=== PATIENT | female | born 1975 | race African-American/Black ===

== ENCOUNTER 2021-04-13 20:26 | Emergency (ER) | payer MEDICAID ==
[2021-04-13] MEDS ORDERED: Lidocaine 2% Viscous Solution 15 ML Cup PO ONE (21:47)
[2021-04-13] MEDS ORDERED: Ketorolac 60 MG/2 ML SDV IM ONE (21:47)
[2021-04-13] MEDS ORDERED: Benzocaine 20% Topical Spray UD MUCMEM ONE (21:47)
[2021-04-13] MEDS ORDERED: Acetaminophen/HYDROcodone 325-10 MG Tab PO ONE (21:47)
[2021-04-13] MEDS ORDERED: Penicillin V Potassium 500 MG Tab PO STA (21:50)
--- NOTE | 2021-04-13 22:04 | EDM.PDOC ---
ED HPI GENERAL MEDICAL PROBLEM - General Chief Complaint: General Stated Complaint: TOOTH ACHE Time Seen by Provider: 04/13/21 20:31 - History of Present Illness INITIAL COMMENTS - FREE TEXT/NARRATIVE: HISTORY AND PHYSICAL: History of present illness: The patient is a 45-year-old female who presents to the emergency department with complaints of left lower that started approximately 3 days ago. The patient states that the tooth has been chipped and she has a temporary filling but now the pain is unbearable. She states that she can't sleep and can eat. She states that she did call to talk to a dentist office and they could get her in in a few days, however the patient has recently moved to [place] and has Medicaid from another state. The patient is unsure when she could get the dental work done. Patient denies any fever, chills, headache, change in vision, syncope or near syncope. Denies any chest pain, back pain, shortness of breath or cough. Denies any abdominal pain, vomiting, diarrhea, constipation or dysuria. Has not noted any blood in urine or stool. Review of systems: As per history of present illness and below otherwise all systems reviewed and negative. Past medical history: As per history of present illness and as reviewed below otherwise noncontributory. Surgical history: As per history of present illness and as reviewed below otherwise noncontributory. Social history: See social history for further information Family history: As per history of present illness and as reviewed below otherwise noncontributory. Physical exam: General: Well developed and well nourished. Alert and orientated x 3. Nontoxic in appearance and in no acute distress. Vital signs are stable and have been reviewed by me. Nursing notes were reviewed. HEENT: Atraumatic, normocephalic, pupils equal and reactive bilaterally, negative for conjunctival pallor or scleral icterus, mucous membranes moist, tooth # 18 caries and partial filling, gums red, TMs normal bilaterally, throat clear, neck supple, nontender, trachea midline. No drooling or trismus noted. No meningeal signs. No hot potato voice noted. Lungs: Normal work of breathing, no accessory muscles used. Skin: Intact, warm, dry. No lesions or rashes noted. Hematologic: No petechiae or purpra. Mucosa appropriate color and normal nail bed color and refill. Extremities: Atraumatic, moves all extremities per self without difficulty or deficits, negative for cords or calf pain. Neurovascular unremarkable. Neuro: Awake, alert, oriented. Cranial nerves II through XII unremarkable. Cerebellum unremarkable. Motor and sensory unremarkable throughout. Exam nonfocal. Psychiatric: Mood and affect are appropriate. Normal thought process. Answering questions appropriately. Notes: *This patient was seen and evaluated during the 2019 SARS-CoV-2 novel coronavirus pandemic period. Community viral transmission is ongoing at time of this encounter and the emergency department is operating under pandemic response procedures. As stated above the patient is a 45-year-old who presents to the emergency department complaining of pain of tooth #18. Examination does show a carious tooth #18 with some inflamed gum line. I will treat the patient with an injection of Toradol, a dental ball, and Parker 325/10 mg. I will prescribe NOrco 325/7.5mg every 4-6 hours as needed for pain and penicillin VK 500 mg every 8 hours p.o. for 10 days. The patient is agreeable with this plan. I have talked with the patient about today's findings, in addition to providing specific details for plan of care. Reassessment at the time of disposition de monstrates that the patient is in no acute distress. The patient is stable for discharge, counseling was provided and we discussed in great detail signs and symptoms that would prompt them to return to the Emergency Department. Medication, follow up and supportive care measures were reviewed and discussed. Voices understanding and is agreeable to plan of care. Denies any further questions or concerns at this time. Therapeutics: Toradol, dental ball, Parker 325/10 mg Prescription: Parker 325/7.5mg every 4-6 hours as needed for pain and penicillin VK 500 mg every 8 hours p.o. for 10 days Impression: Dental Caries Plan: 1. You were evaluated today on an emergent basis. Your pain in your left lower molar was evaluated and found indeed to be broken with some infection there. I have treated your pain with Toradol, dental ball and Parker 325/10 in the emergency department. I also started your antibiotic of penicillin the 500 mg in the emergency department. I prescribed Parker 325/7.5mg every 4-6 hours as needed for pain given a paper prescription for that. I also prescribed penicillin VK 500 mg every 8 hours p.o. for 10 days was sent to your pharmacy in the pharmacy. Tentative treatment is to see a dentist. And as we talked about you can attempt to get a temporary filling at [facility]. This could help relieve some of the pain. 2. You can alternate Tylenol and ibuprofen as needed for pain and fever management. 3. We encourage you to follow up with your primary care provider and/or recommended specialist in the next few days for re-evaluation and further care/management. 4. If your symptoms should worsen, new symptoms develop or any of the signs and symptoms we discussed should arise please return to the emergency room or call 911 (if needed). Definitive disposition and diagnosis as appropriate pending reevaluation and review of above. tooth Pain Score (Numeric/FACES): 9 - Related Data Allergies Allergy/AdvReac Type Severity Reaction Status Date / Time No Known Allergies Allergy Verified 04/13/21 22:08 Home Meds: Home Meds Penicillin V Potassium 500 mg PO Q8HR 10 Days #30 tab 04/13/21 [Rx] Past Medical History - Past Health History Medical/Surgical History: Denies Medical/Surgical History Social & Family History - Family History Family Medical History: No Pertinent Family History - Tobacco Use Tobacco Use Status *Q: Never Tobacco User Second Hand Smoke Exposure: No - Caffeine Use Caffeine Use: Reports: Coffee - Recreational Drug Use Recreational Drug Use: No ED ROS GENERAL - Review of Systems Review Of Systems: Comprehensive ROS is negative, except as noted in HPI. ED EXAM, GENERAL - Physical Exam Exam: See Below (See dictation) Course - Vital Signs Last Recorded V/S: Last Vital Signs Temp 97 F 04/13/21 21:41 Pulse 56 L 04/13/21 22:33 Resp 18 04/13/21 22:33 BP 136/91 H 04/13/21 22:33 Pulse Ox 98 04/13/21 22:33 - Orders/Labs/Meds Meds: Medications Discontinued Medications Generic Name Dose Route Start Last Admin Trade Name Freq PRN Reason Stop Dose Admin Hydrocodone Bitart/Acetaminophen 1 tab 04/13/21 21:47 04/13/21 22:26 Acetaminophen/Hydrocodone 325-10 Mg Tab PO 04/13/21 21:48 1 tab ONETIME ONE Administration Benzocaine 2 each 04/13/21 21:47 04/13/21 22:25 Benzocaine 20% Topical [place] Ud MUCMEM 04/13/21 21:48 2 each ONETIME ONE Administration Ketorolac Tromethamine 60 mg 04/13/21 21:47 04/13/21 22:25 Ketorolac 60 Mg/2 Ml Sdv IM 04/13/21 21:48 60 mg ONETIME ONE Administration Lidocaine HCl 15 ml 04/13/21 21:47 04/13/21 22:26 Lidocaine 2% Viscous Solution 15 Ml Cup PO 04/13/21 21:48 15 ml ONETIME ONE Administration Penicillin V Potassium 500 mg 04/13/21 21:50 04/13/21 22:26 Penicillin V Potassium 500 Mg Tab PO 04/13/21 21:51 500 mg ONETIME STA Administration Departure - Departure Time of Disposition: 22:05 Disposition: Home, Self-Care 01 Condition: Good Clinical Impression: Dental caries - Discharge Information *PRESCRIPTION DRUG MONITORING PROGRAM REVIEWED*: Yes (No report for patient) *COPY OF PRESCRIPTION DRUG MONITORING REPORT IN PATIENT NUZHAT: No Prescriptions: Penicillin V Potassium 500 mg PO Q8HR 10 Days #30 tab Referrals: PCP,None [Primary Care Provider] - Forms: ED Department Discharge Additional Instructions: The following information is given to patients seen in the emergency department who are being discharged to home. This information is to outline your options for follow-up care. We provide all patients seen in our emergency department with a follow-up referral. The need for follow-up, as well as the timing and circumstances, are variable depending upon the specifics of your emergency department visit. If you don't have a primary care physician on staff, we will provide you with a referral. We always advise you to contact your personal physician following an emergency department visit to inform them of the circumstance of the visit and for follow-up with them and/or the need for any referrals to a consulting specialist. The emergency department will also refer you to a specialist when appropriate. This referral assures that you have the opportunity for follow-up care with a specialist. All of these measure are taken in an effort to provide you with optimal care, which includes your follow-up. Under all circumstances we always encourage you to contact your private physician who remains a resource for coordinating your care. When calling for follow-up care, please make the office aware that this follow-up is from your recent emergency room visit. If for any reason you are refused follow-up, please contact the [facility] Emergency Department at and asked to speak to the emergency department charge nurse. [facility] [address] [place] [address] [facility] [address] [place] [address] Plan: 1. You were evaluated today on an emergent basis. Your pain in your left lower molar was evaluated and found indeed to be broken with some infection there. I have treated your pain with Toradol, dental ball and Parker 325/10 in the emergency department. I also started your antibiotic of penicillin the 500 mg in the emergency department. I prescribed Parker 325/7.5mg every 4-6 hours as needed for pain given a paper prescription for that. I also prescribed penicillin VK 500 mg every 8 hours p.o. for 10 days was sent to your pharmacy in the pharmacy. Tentative treatment is to see a dentist. And as we talked about you can attempt to get a temporary filling at [facility]. This could help relieve some of the pain. 2. You can alternate Tylenol and ibuprofen as needed for pain and fever management. 3. We encourage you to follow up with your primary care provider and/or recommended specialist in the next few days for re-evaluation and further care/management. 4. If your symptoms should worsen, new symptoms develop or any of the signs and symptoms we discussed should arise please return to the emergency room or call 911 (if needed). Sepsis Event Note (ED) - Evaluation Sepsis Screening Result: No Definite Risk - Focused Exam Vital Signs: Vital Signs Temp Pulse Resp BP Pulse Ox 04/13/21 22:33 56 L 18 136/91 H 98 04/13/21 21:41 97 F 70 18 124/98 H 100
== END 2021-04-13 22:34 | disposition home or self-care (01) ==
LOC: MW.ED 20:26
DX: K02.9 Dental caries, unspecified (principal)
CPT/HCPCS: 96372; 99282; A9270; J1885

== ENCOUNTER 2021-04-14 10:41 | Emergency (ER) | payer MEDICAID ==
[2021-04-14] MEDS ORDERED: Benzocaine 20% Topical Spray UD MUCMEM ONE (10:43)
[2021-04-14] MEDS ORDERED: Lidocaine 2% Viscous Solution 15 ML Cup PO ONE (10:43)
[2021-04-14] MEDS ORDERED: Acetaminophen/HYDROcodone 325-5 MG Tab PO ONE (10:44)
--- NOTE | 2021-04-14 10:59 | EDM.PDOC ---
ED HPI GENERAL MEDICAL PROBLEM - General Chief Complaint: ENT Problem Stated Complaint: TOOTH DECAY/TOOTH PAIN Time Seen by Provider: 04/14/21 10:43 Source of Information: Reports: Patient History Limitations: Reports: No Limitations - History of Present Illness INITIAL COMMENTS - FREE TEXT/NARRATIVE: HISTORY AND PHYSICAL: History of present illness: Patient is a 45-year-old female who presents to the emergency room with complaints of left lower dental pain. She was seen yesterday for this pain and started on Pen-Vee K but states the pain is unbearable. She did attempt to get into a dentist but they are unwilling to take her insurance. She picked up the prescription for the antibiotic this morning, has had her first dose. Patient denies any fever, chills, headache, change in vision, syncope or near syncope. Denies any chest pain, back pain, shortness of breath or cough. Denies any abdominal pain, nausea, vomiting, diarrhea, constipation or dysuria. Has not noted any blood in urine or stool. Patient has been eating and drinking appropriately. No recent travel or sick contacts. Review of systems: As per history of present illness and below otherwise all systems reviewed and negative. Past medical history: As per history of present illness and as reviewed below otherwise noncontributory. Surgical history: As per history of present illness and as reviewed below otherwise noncontributory. Social history: See social history for further information Family history: As per history of present illness and as reviewed below otherwise noncontributory. Physical exam: General: Well developed and well nourished 45-year-old female. Alert and orientated x 3. Nontoxic in appearance and in no acute distress. Vital signs are stable and have been reviewed by me. Nursing notes were reviewed. HEENT: Atraumatic, normocephalic, pupils equal and reactive bilaterally, negative for conjunctival pallor or scleral icterus, mucous membranes moist, TMs normal bilaterally, tooth #18 has a feeling that is cracked with gumline swelling and redness, tender to touch. No floor tenderness. Throat clear, neck supple, nontender, trachea midline. No drooling or trismus noted. No meningeal signs. No hot potato voice noted. Lungs: Clear to auscultation bilaterally. No wheezes, rales, or rhonchi. Chest nontender. Normal work of breathing, no accessory muscles used. Heart: S1S2, regular rate and rhythm without overt murmur, gallops, or rubs. No JVD. No peripheral edema Abdomen: Soft, nondistended, nontender. Skin: Intact, warm, dry. No lesions or rashes noted. Hematologic: No petechiae or purpra. Mucosa appropriate color and normal nail bed color and refill. Extremities: Atraumatic, moves all extremities per self without difficulty or deficits, negative for cords or calf pain. Neurovascular unremarkable. Neuro: Awake, alert, oriented. Cranial nerves II through XII unremarkable. Cerebellum unremarkable. Motor and sensory unremarkable throughout. Exam nonf ocal. Psychiatric: Mood and affect are appropriate. Normal thought process. Answering questions appropriately. Please note that the patient was seen and evaluated during the 2019 SARS-CoV-2 novel coronavirus pandemic period. Community viral transmission is ongoing at time of this encounter and the emergency department is operating under pandemic response procedures. Medical Decision Making: Patient did just last picker her antibiotic prescription. I will give her a limited amount of pain medication until she is able to follow-up with a dentist. I have talked with the patient about today's findings, in addition to providing specific details for plan of care. Reassessment at the time of disposition demonstrates that the patient is in no acute distress. The patient is stable for discharge, counseling was provided and we discussed in great detail signs and symptoms that would prompt them to return to the Emergency Department. Medication, follow up and supportive care measures were reviewed and discussed. Voices understanding and is agreeable to plan of care. Denies any further questions or concerns at this time. Diagnostics: None Therapeutics: Dental balls, Calvin Prescription: Calvin (#20) Impression: Dental abscess Plan: 1. You were evaluated today on an emergent basis. Continue to take your antibiotic as prescribed. Prescription has been sent to your pharmacy for pain management. 2. Tylenol and/or ibuprofen as needed for pain management. "Tooth Balls" have been given to you; apply along the gumline every 2-3 hours as needed. Do not swallow these; external use only. 3. We encourage you to follow up with a dentist for re-evaluation and further care/management. 4. If your symptoms should worsen, new symptoms develop or any of the signs and symptoms we discussed should arise please return to the emergency room or call 911 (if needed). Definitive disposition and diagnosis as appropriate pending reevaluation and review of above. leftlower jaw Pain Score (Numeric/FACES): 9 - Related Data Allergies Allergy/AdvReac Type Severity Reaction Status Date / Time No Known Allergies Allergy Verified 04/14/21 10:46 Home Meds: Home Meds Penicillin V Potassium 500 mg PO Q8HR 10 Days #30 tab 04/13/21 [Rx] Hydrocodone/Acetaminophen [HYDROcodone-Acetaminophen 5-325 MG] 1 - 2 tab PO Q4HR PRN #20 tablet 04/14/21 [Rx] Past Medical History - Past Health History Medical/Surgical History: Denies Medical/Surgical History Social & Family History - Family History Family Medical History: No Pertinent Family History - Tobacco Use Tobacco Use Status *Q: Never Tobacco User - Caffeine Use Caffeine Use: Reports: Coffee - Recreational Drug Use Recreational Drug Use: No ED ROS ENT - Review of Systems Review Of Systems: Comprehensive ROS is negative, except as noted in HPI. ED EXAM, ENT - Physical Exam Exam: See Below (See dictation) Course - Vital Signs Last Recorded V/S: Last Vital Signs Temp 99.0 F 04/14/21 10:42 Pulse 89 04/14/21 10:42 Resp 18 04/14/21 10:42 BP 129/82 04/14/21 10:42 Pulse Ox 98 04/14/21 10:42 - Orders/Labs/Meds Meds: Medications Discontinued Medications Generic Name Dose Route Start Last Admin Trade Name Freq PRN Reason Stop Dose Admin Hydrocodone Bitart/Acetaminophen 1 tab 04/14/21 10:44 04/14/21 11:05 Acetaminophen/Hydrocodone 325-5 Mg Tab PO 04/14/21 10:45 1 tab ONETIME ONE Administration Benzocaine 2 each 04/14/21 10:43 04/14/21 11:05 Benzocaine 20% Topical [place] Ud MUCMEM 04/14/21 10:44 2 each ONETIME ONE Administration Lidocaine HCl 15 ml 04/14/21 10:43 04/14/21 11:05 Lidocaine 2% Viscous Solution 15 Ml Cup PO 04/14/21 10:44 15 ml ONETIME ONE Administration Departure - Departure Time of Disposition: 11:07 Disposition: Home, Self-Care 01 Clinical Impression: Dental abscess, Dentalgia - Discharge Information Prescriptions: Hydrocodone/Acetaminophen [HYDROcodone-Acetaminophen 5-325 MG] 1 - 2 tab PO Q4HR PRN #20 tablet PRN Reason: Pain (Moderate 4-6) Instructions: Dental Abscess, [id number] Forms: ED Department Discharge Additional Instructions: The following information is given to patients seen in the emergency department who are being discharged to home. This information is to outline your options for follow-up care. We provide all patients seen in our emergency department with a follow-up referral. The need for follow-up, as well as the timing and circumstances, are variable depending upon the specifics of your emergency department visit. If you don't have a primary care physician on staff, we will provide you with a referral. We always advise you to contact your personal physician following an emergency department visit to inform them of the circumstance of the visit and for follow-up with them and/or the need for any referrals to a consulting specialist. The emergency department will also refer you to a specialist when appropriate. This referral assures that you have the opportunity for follow-up care with a specialist. All of these measure are taken in an effort to provide you with optimal care, which includes your follow-up. Under all circumstances we always encourage you to contact your private physician who remains a resource for coordinating your care. When calling for follow-up care, please make the office aware that this follow-up is from your recent emergency room visit. If for any reason you are refused follow-up, please contact the [facility] Emergency Department at and asked to speak to the emergency department charge nurse. [facility] [address] [place] [address] [id number] [address] [address] Thank you for choosing the [facility] emergency department in [place] for your medical needs today. It was a pleasure caring for you. Today you were seen in the emergency department for dental care 1. You were evaluated today on an emergent basis. Continue to take your antibi otic as prescribed. Prescription has been sent to your pharmacy for pain management. 2. Tylenol and/or ibuprofen as needed for pain management. "Tooth Balls" have been given to you; apply along the gumline every 2-3 hours as needed. Do not swallow these; external use only. 3. We encourage you to follow up with a dentist for re-evaluation and further care/management. 4. If your symptoms should worsen, new symptoms develop or any of the signs and symptoms we discussed should arise please return to the emergency room or call 911 (if needed). Sepsis Event Note (ED) - Evaluation Sepsis Screening Result: No Definite Risk - Focused Exam Vital Signs: Vital Signs Temp Pulse Resp BP Pulse Ox 04/14/21 10:42 99.0 F 89 18 129/82 98
== END 2021-04-14 11:16 | disposition home or self-care (01) ==
LOC: MW.ED 10:41
DX: K04.7 Periapical abscess without sinus (principal)
CPT/HCPCS: 99282; A9270